=== PATIENT | male | born 1940 | race Caucasian/White ===

== ENCOUNTER 2021-01-09 05:49 | Observation (INO) ==
[2021-01-09] MEDS ORDERED: Lactated Ringers 1000 ml BAG 1,000 ML IV SCH (06:00)
[2021-01-09] MEDS ORDERED: Buffered Lidocaine 1% SYRIN 1 ml INTRADERM ONE (06:00)
[2021-01-09] MEDS ORDERED: Clindamycin 900 MG/D5W BAG 900 MG/50 ML BAG IVPB ONE (06:13)
[2021-01-09] MEDS ORDERED: fentaNYL 250 mcg/5 ml 50 MCG/ML 5 ml VIAL (250 MCG) ONE (06:50)
[2021-01-09] MEDS ORDERED: Midazolam 5 mg/5 ml VIAL 1 mg/ml 5 ml VIAL (5 mg) ONE (06:50)
[2021-01-09] MEDS ORDERED: Rocuronium 50 mg VIAL 10 mg/ml 5 ml VIAL (50 mg) ONE ×3 (06:50→10:03)
[2021-01-09] MEDS ORDERED: Dexamethasone IV 4 MG/ML VIAL 1 ml VIAL ONE (06:51)
[2021-01-09] MEDS ORDERED: Propofol 10 MG/ML 20 ML BTL ONE ×2 (06:51→11:42)
[2021-01-09] MEDS ORDERED: Lidocaine 2% PF 5 ML VIAL ONE (06:51)
[2021-01-09] MEDS ORDERED: ROPIVACAINE 5 MG/ML 30 ML BTL (0.5%) ONE (07:07)
[2021-01-09] MEDS ORDERED: Lidocaine 1% MPF 5 ML VIAL ONE (07:07)
[2021-01-09] MEDS ORDERED: Ondansetron 4 mg VIAL 2 MG/ML 2 ml VIAL IV PRN ×2 (08:57→12:06)
[2021-01-09] MEDS ORDERED: fentaNYL 100 mcg/2 ml 50 MCG/ML VIAL IV PRN (08:57)
[2021-01-09] MEDS ORDERED: Naloxone 0.4 mg VIAL 0.4 mg/ml 1 ml VIAL IV PRN (08:57)
[2021-01-09] MEDS ORDERED: Acetaminophen IV 1 GM/100ML 100 ML IV PRN (08:57)
[2021-01-09] MEDS ORDERED: HYDROmorphone 1 MG/1 ML SYRINGE IV PRN (08:57)
[2021-01-09] MEDS ORDERED: Phenylephrine IV 10 MG/ML 1 ml VIAL ONE (09:31)
[2021-01-09] MEDS ORDERED: Vancomycin 1,000 MG VIAL ONE (11:00)
[2021-01-09] MEDS ORDERED: Sugammadex 500 MG/5 ML 5 ml VIAL IV PUSH ONE (11:02)
[2021-01-09] MEDS ORDERED: Ondansetron 4 mg VIAL 2 MG/ML 2 ml VIAL ONE ×2 (11:02→12:26)
[2021-01-09] MEDS ORDERED: Lactulose 30 ml UDC PO PRN (12:06)
[2021-01-09] MEDS ORDERED: oxyCODONE/Acetamin 5/325 mg TAB PO PRN ×2 (12:06)
[2021-01-09] MEDS ORDERED: Magnesium Hydroxide LIQ 30 ML UDC PO PRN (12:06)
[2021-01-09] MEDS ORDERED: diPHENhydraMINE 25 mg TAB PO PRN (12:06)
[2021-01-09] MEDS ORDERED: Morphine 2 MG/ML SYRINGE IV PRN (12:06)
[2021-01-09] MEDS ORDERED: Ondansetron ODT 4 mg TAB 4 MG TAB PO PRN (12:06)
[2021-01-09] MEDS ORDERED: diPHENhydraMINE IV 50 MG/ML 1 ml VIAL (BENADRYL) IV PRN (12:06)
[2021-01-09] MEDS ORDERED: Acetaminophen IV 1 GM/100ML 100 ML IV ONE (12:27)
[2021-01-09] MEDS: Lactated Ringers 1000 ml BAG 1,000 ML IV SCH (14:00)
[2021-01-09] MEDS: Clindamycin 600 MG/D5W BAG 600 MG/50 ML BAG IV SCH (16:05)
[2021-01-09] MEDS ORDERED: Aspirin EC 81 mg TAB.EC (enteric coated) PO SCH (18:00)
[2021-01-09] MEDS ORDERED: Dextrose 50% Syringe 50 ml 25 GM/50 ML SYRINGE IV PUSH PRN (18:04)
[2021-01-09] MEDS: Magnesium Hydroxide LIQ 30 ML UDC PO SCH ×3 (21:37→21:53)
[2021-01-10] MEDS: Clindamycin 600 MG/D5W BAG 600 MG/50 ML BAG IV SCH ×2 (01:05→08:10)
[2021-01-10] MEDS: Lactated Ringers 1000 ml BAG 1,000 ML IV SCH (01:30)
[2021-01-10 07:27] LABS: Hematocrit 36 % (42-52); Hemoglobin 12.6 g/dL (14.0-18.0); Platelet Count 96 10^3/uL (150-450)
[2021-01-10 07:49] LABS: EGFR African American 90.3 (>60); EGFR Non-African American 74.7 (>60); Potassium 4.4 mmol/L (3.5-5.0)
[2021-01-10] MEDS: Magnesium Hydroxide LIQ 30 ML UDC PO SCH (08:10)
[2021-01-10] MEDS ORDERED: Vitamin THERAPEUTIC TAB PO SCH (09:00)
[2021-01-10 11:02] VITALS: BP 114/68
== END 2021-01-10 13:00 | disposition home or self-care (01) ==
LOC: INTOOBSV 05:49 → AA 05:49 → SSU 13:34
PROVIDERS: ADMIT Orthopaedic Surgery; ATTEND Orthopaedic Surgery

== ENCOUNTER 2022-05-21 05:53 | Observation (INO) ==
[2022-05-21] MEDS ORDERED: Buffered Lidocaine 1% SYRIN 1 ml INTRADERM ONE (06:00)
[2022-05-21] MEDS ORDERED: Lactated Ringers 1000 ml BAG 1,000 ML IV SCH ×2 (06:00→12:00)
[2022-05-21] MEDS ORDERED: Famotidine IV 10 MG/ML 2 ml VIAL (20 mg) IV ONE (06:00)
[2022-05-21] MEDS ORDERED: Clindamycin 900 MG/D5W BAG 900 MG/50 ML BAG IVPB ONE (06:11)
[2022-05-21] MEDS ORDERED: Famotidine IV 10 MG/ML 2 ml VIAL (20 mg) ONE (06:11)
[2022-05-21] MEDS ORDERED: Rocuronium 50 mg VIAL 10 mg/ml 5 ml VIAL (50 mg) ONE ×2 (06:59→08:51)
[2022-05-21] MEDS ORDERED: fentaNYL 100 mcg/2 ml 50 MCG/ML VIAL ONE ×2 (07:01→07:03)
[2022-05-21] MEDS ORDERED: Midazolam 2 mg/2 ml VIAL 1 mg/ml 2 ml VIAL (2 mg) ONE (07:01)
[2022-05-21] MEDS ORDERED: Lidocaine 2% PF 5 ML VIAL ONE ×2 (07:03→07:08)
[2022-05-21] MEDS ORDERED: Midazolam 5 mg/5 ml VIAL 1 mg/ml 5 ml VIAL (5 mg) ONE (07:03)
[2022-05-21] MEDS ORDERED: ROPIVACAINE 5 MG/ML 30 ML BTL (0.5%) ONE (07:03)
[2022-05-21] MEDS ORDERED: Propofol 10 MG/ML 20 ML BTL ONE (07:08)
[2022-05-21] MEDS ORDERED: Vancomycin 1,000 MG VIAL ONE (07:16)
[2022-05-21] MEDS ORDERED: Naloxone 0.4 mg VIAL 0.4 mg/ml 1 ml VIAL IV PRN (08:27)
[2022-05-21] MEDS ORDERED: fentaNYL 100 mcg/2 ml 50 MCG/ML VIAL IV PRN (08:27)
[2022-05-21] MEDS ORDERED: Dexamethasone IV 4 MG/ML VIAL 1 ml VIAL ONE ×2 (08:42→08:43)
[2022-05-21] MEDS ORDERED: Dexmedetomidine 200 mcg/2 ml 2 ml VIAL (200 mcg) ONE (08:44)
[2022-05-21] MEDS ORDERED: Ondansetron 4 mg VIAL 2 MG/ML 2 ml VIAL ONE (09:01)
[2022-05-21] MEDS ORDERED: Sugammadex 500 MG/5 ML 5 ml VIAL IV PUSH ONE (11:20)
[2022-05-21] MEDS ORDERED: Ondansetron ODT 4 mg TAB 4 MG TAB PO PRN (11:55)
[2022-05-21] MEDS ORDERED: Morphine 2 MG/ML SYRINGE IV PRN (11:55)
[2022-05-21] MEDS ORDERED: Lactulose 30 ml UDC PO PRN (11:55)
[2022-05-21] MEDS ORDERED: Magnesium Hydroxide LIQ 30 ML UDC PO PRN (11:55)
[2022-05-21] MEDS ORDERED: Ondansetron 4 mg VIAL 2 MG/ML 2 ml VIAL IV PRN (11:55)
[2022-05-21] MEDS ORDERED: Acetaminophen IV 1 GM/100ML 1,000 MG/100 ML BAG IV ONE (13:39)
[2022-05-21] MEDS: Clindamycin 600 MG/D5W BAG 600 MG/50 ML BAG IV SCH (16:54)
[2022-05-21] MEDS ORDERED: Dextrose 50% Syringe 50 ml 25 GM/50 ML SYRINGE IV PUSH PRN (18:43)
[2022-05-21] MEDS: Magnesium Hydroxide LIQ 30 ML UDC PO SCH (20:21)
[2022-05-22] MEDS: Clindamycin 600 MG/D5W BAG 600 MG/50 ML BAG IV SCH ×2 (00:11→08:13)
[2022-05-22 06:47] LABS: Hematocrit 34 % (42-52); Platelet Count 85 10^3/uL (150-450)
[2022-05-22 06:52] LABS: Calcium 7.9 mg/dL (8.6-10.3); Potassium 4.4 mmol/L (3.5-5.0); eGFR CKD-EPI 72.6 (>60)
[2022-05-22] MEDS ORDERED: Cholecalciferol (VIT D3) 1,000 unit TAB PO SCH (09:00)
[2022-05-22] MEDS ORDERED: DOCUSATE SODIUM 100 MG PO SCH (09:00)
[2022-05-22] MEDS ORDERED: Vitamin THERAPEUTIC TAB PO SCH (09:00)
[2022-05-22] MEDS: Magnesium Hydroxide LIQ 30 ML UDC PO SCH (10:42)
[2022-05-22 12:08] VITALS: BP 133/74
[2022-05-22] MEDS ORDERED: Aspirin EC 81 mg TAB.EC (enteric coated) PO SCH (21:00)
== END 2022-05-22 18:23 | disposition home or self-care (01) ==
LOC: AA 05:53 → INTOOBSV 11:55 → SSU 13:24
PROVIDERS: ADMIT Orthopaedic Surgery; ATTEND Orthopaedic Surgery

== ENCOUNTER 2022-07-25 10:44 | Observation (INO) ==
[~2022-07-25 10:44] MED LIST: Buffered Lidocaine 1% SYRIN 1 ml INTRADERM ONE; Lactated Ringers 1000 ml BAG 1,000 ML IV SCH
[2022-07-25] MEDS ORDERED: Clindamycin 900 MG/D5W BAG 900 MG/50 ML BAG IVPB ONE (11:32)
[2022-07-25 11:33] LABS: ABS Basophils 0.1 10^3/ul (0-0.2); ABS Eosinophils 0.2 10^3/ul (0-0.6); ABS Lymphocytes 1.9 10^3/ul (1.0-4.8); ABS Monocytes 0.8 10^3/ul (0-0.8); ABS Neutrophils 4.7 10^3/ul (1.5-7.7); Hematocrit 47 % (42-52); Hemoglobin 15.9 g/dL (14.0-18.0); Lymphocyte % 25.3 %; Mean Corpuscular HGB Conc 34 g/dL (31-36); Mean Corpuscular Hemoglobin 32 pg (27-31); Mean Corpuscular Volume 96 fL (80-94); Mean Platelet Volume 9.2 fL (7.4-10.4); Platelet Count 117 10^3/uL (150-450); Red Blood Count 4.91 10^6 /uL (4.18-5.48); Red Cell Distribution Width 14 % (10-15); White Blood Count 7.6 10^3/uL (3.5-10.8)
[2022-07-25 12:40] LABS: Calcium 9.2 mg/dL (8.6-10.3); Creatinine, Serum 1.02 mg/dL (0.67-1.17); Potassium 4.1 mmol/L (3.5-5.0); eGFR CKD-EPI 73.8 (>60)
[2022-07-25] MEDS ORDERED: ROPIVACAINE 5 MG/ML 30 ML BTL (0.5%) ONE (12:47)
[2022-07-25] MEDS ORDERED: Midazolam 2 mg/2 ml VIAL 1 mg/ml 2 ml VIAL (2 mg) ONE ×2 (12:47→15:08)
[2022-07-25] MEDS ORDERED: Dexamethasone IV 4 MG/ML VIAL 1 ml VIAL ONE ×2 (12:48→15:44)
[2022-07-25] MEDS ORDERED: fentaNYL 100 mcg/2 ml 50 MCG/ML VIAL ONE ×2 (13:01→15:08)
[2022-07-25] MEDS ORDERED: Lidocaine 2% PF 5 ML VIAL ONE ×2 (13:01→15:15)
[2022-07-25] MEDS ORDERED: Rocuronium 50 mg VIAL 10 mg/ml 5 ml VIAL (50 mg) ONE ×3 (13:01→16:08)
[2022-07-25] MEDS ORDERED: Propofol 10 MG/ML 20 ML BTL ONE ×2 (13:01→15:15)
[2022-07-25] MEDS ORDERED: Naloxone 0.4 mg VIAL 0.4 mg/ml 1 ml VIAL IV PRN (13:24)
[2022-07-25] MEDS ORDERED: Ondansetron 4 mg VIAL 2 MG/ML 2 ml VIAL IV PRN ×2 (13:24→19:27)
[2022-07-25] MEDS ORDERED: HYDROmorphone 1 MG/1 ML SYRINGE IV PRN (13:24)
[2022-07-25] MEDS ORDERED: Acetaminophen IV 1 GM/100ML 1,000 MG/100 ML BAG IV PRN (13:24)
[2022-07-25] MEDS ORDERED: fentaNYL 100 mcg/2 ml 50 MCG/ML VIAL IV PRN (13:24)
[2022-07-25] MEDS ORDERED: Vancomycin 1,000 MG VIAL ONE (14:02)
[2022-07-25] MEDS ORDERED: Ondansetron 4 mg VIAL 2 MG/ML 2 ml VIAL ONE ×2 (15:44→17:50)
[2022-07-25] MEDS ORDERED: Acetaminophen IV 1 GM/100ML 1,000 MG/100 ML BAG IV ONE (15:46)
[2022-07-25] MEDS ORDERED: Phenylephrine IV 10 MG/ML 1 ml VIAL ONE (16:08)
[2022-07-25] MEDS ORDERED: Magnesium Hydroxide LIQ 30 ML UDC PO PRN (19:27)
[2022-07-25] MEDS ORDERED: Lactulose 30 ml UDC PO PRN (19:27)
[2022-07-25] MEDS ORDERED: Ondansetron ODT 4 mg TAB 4 MG TAB PO PRN (19:27)
[2022-07-25] MEDS ORDERED: Morphine 2 MG/ML SYRINGE IV PRN (19:27)
[2022-07-25] MEDS ORDERED: Lactated Ringers 1000 ml BAG 1,000 ML IV SCH (20:00)
[2022-07-25] MEDS ORDERED: Aspirin EC 81 mg TAB.EC (enteric coated) PO SCH (21:00)
[2022-07-25] MEDS ORDERED: Magnesium Hydroxide LIQ 30 ML UDC PO SCH (21:00)
[2022-07-26] MEDS: Clindamycin 600 MG/D5W BAG 600 MG/50 ML BAG IV SCH ×3 (00:19→16:16)
[2022-07-26 06:15] LABS: Hematocrit 37 % (42-52); Hemoglobin 12.1 g/dL (14.0-18.0)
[2022-07-26 06:36] LABS: Calcium 8.2 mg/dL (8.6-10.3); Creatinine, Serum 0.9 mg/dL (0.67-1.17); Potassium 4.4 mmol/L (3.5-5.0); eGFR CKD-EPI 85.8 (>60)
[2022-07-26 08:47] LABS: Mean Platelet Volume 9.1 fL (7.4-10.4); Platelet Count 96 10^3/uL (150-450)
[2022-07-26] MEDS ORDERED: Cholecalciferol (VIT D3) 1,000 unit TAB PO SCH (09:00)
[2022-07-26] MEDS ORDERED: Vitamin THERAPEUTIC TAB PO SCH (09:00)
[2022-07-26] MEDS ORDERED: Enoxaparin 40 MG/0.4 ML SYR SUBCUT SCH (14:00)
[2022-07-26 17:05] VITALS: BP 126/78
== END 2022-07-26 19:15 | disposition home or self-care (01) ==
LOC: OR 10:44 → SSU 10:44
PROVIDERS: ADMIT Orthopaedic Surgery; ATTEND Orthopaedic Surgery

== ENCOUNTER 2024-06-04 10:16 | Observation (INO) ==
[2024-06-04] MEDS ORDERED: fentaNYL 100 mcg/2 ml 50 MCG/ML VIAL ONE ×2 (10:44→14:12)
[2024-06-04] MEDS ORDERED: Rocuronium 50 mg VIAL 10 mg/ml 5 ml VIAL (50 mg) ONE (10:44)
[2024-06-04] MEDS ORDERED: Propofol 10 MG/ML 20 ML BTL ONE (10:44)
[2024-06-04] MEDS ORDERED: Lidocaine 2% PF 5 ML VIAL ONE (10:44)
[2024-06-04] MEDS ORDERED: Ondansetron 4 mg VIAL 2 MG/ML 2 ml VIAL ONE (10:44)
[2024-06-04] MEDS ORDERED: Chlorhexidine MOUTHWASH 0.12% 15 ML UDC ONE (10:55)
[2024-06-04] MEDS ORDERED: Dexamethasone IV 4 MG/ML VIAL 1 ml VIAL ONE (10:55)
[2024-06-04] MEDS ORDERED: Famotidine IV 10 MG/ML 2 ml VIAL (20 mg) ONE (10:55)
[2024-06-04] MEDS ORDERED: ceFAZolin 2 GM PREMIX 2 GM/50 ML BAG ONE (10:55)
[2024-06-04] MEDS ORDERED: Lidocaine 1% w EPI 1:100,000 MDV 50 ML VIAL ONE (11:19)
[2024-06-04] MEDS ORDERED: ceFAZolin VIAL VIAL ONE (11:19)
[2024-06-04 11:37] LABS: Rapid COVID-19 Molecular Undetected (Undetected)
[2024-06-04] MEDS: Famotidine IV 10 MG/ML 2 ml VIAL (20 mg) IV ONE (11:43)
[2024-06-04] MEDS: Dexamethasone IV 4 MG/ML VIAL 1 ml VIAL IV SLOW PU ONE (11:44)
[2024-06-04] MEDS ORDERED: HYDROmorphone 0.5 MG/0.5 ML SYRINGE ONE (13:22)
[2024-06-04] MEDS ORDERED: Ondansetron 4 mg VIAL 2 MG/ML 2 ml VIAL IV PRN (13:52)
[2024-06-04] MEDS ORDERED: Senna TAB 8.6 mg TAB PO PRN (13:52)
[2024-06-04] MEDS ORDERED: Phenol 1.4% Throat Spray BTL MT PRN (13:52)
[2024-06-04] MEDS ORDERED: Calcium Carb (TUMS) 500 mg CHEW TAB PO PRN (13:52)
[2024-06-04] MEDS ORDERED: Morphine 2 MG/ML SYRINGE IV PRN (13:52)
[2024-06-04] MEDS ORDERED: Dextran 70/Hypromellose Tears Eye Drops 15 ml BTL (for Artificials Tears) BOTH EYES PRN (13:52)
[2024-06-04] MEDS ORDERED: Benzocaine/Menthol LOZ MT PRN (13:52)
[2024-06-04] MEDS ORDERED: Morphine 4 MG/ML VIAL (1 ml) IV PRN (14:14)
[2024-06-04] MEDS ORDERED: Naloxone 0.4 mg VIAL 0.4 mg/ml 1 ml VIAL IV PRN (14:14)
[2024-06-04] MEDS: fentaNYL 100 mcg/2 ml 50 MCG/ML VIAL IV PRN (14:17)
[2024-06-04] MEDS: HYDROcodone/ACETAMIN 5/325 mg TAB PO PRN (16:52)
[2024-06-04] MEDS: Buffered Lidocaine 1% SYRIN 1 ml INTRADERM ONE (17:29)
[2024-06-04] MEDS: Lactated Ringers 1000 ml BAG 1,000 ML IV SCH ×2 (17:29→17:30)
[2024-06-04] MEDS: Aspirin EC 81 mg TAB.EC (enteric coated) PO SCH (19:53)
[2024-06-05] MEDS: HYDROcodone/ACETAMIN 5/325 mg TAB PO PRN (08:37)
[2024-06-05 09:35] VITALS: BP 112/64
== END 2024-06-05 11:35 | disposition home or self-care (01) ==
LOC: OR 10:16 → SSU 10:16
PROVIDERS: ADMIT Neurological Surgery; ATTEND Neurological Surgery